=== PATIENT | female | born 2005 | race Caucasian/White ===

== ENCOUNTER 2025-07-17 15:46 | Emergency (ER) | payer BC, SELFPAY ==
[2025-07-17 15:49] VITALS: BP 131/96
--- NOTE | 2025-07-17 16:32 | ED.GENMED ---
History of Present Illness
General
Chief Complaint: Nose Bleed
Time Seen by Provider: 07/17/25 15:58
History of Present Illness
History of Present Illness:
20-year-old female presents to the emergency department for evaluation of recurrent epistaxis. Patient has had chronic intermittent epistaxis and followed up with ENT 4 days ago, had cautery performed. Had been doing well up until today. Denies
any trauma to the nose. Has been compliant with Neosporin application to the nare
Review of Systems
Review of Systems
Allergies reviewed?: Yes
All Other Systems: ROS reviewed and negative except as documented in HPI and ROS
Phy Exam
Physical Exam
Physical Exam:
GEN: Well appearing, NAD, WDWN
HEENT: Oral mucosa moist, no scleral icterus. Evidence of recent epistaxis to the superior aspect of the anterior right nare just superior to the area of cautery
Cardiac: Regular rate
Lung: No respiratory distress, no tachypnea
MSK: No gross deformity or injuries
Skin: Good color, no pallor or jaundice, no rashes
Neuro: AO x3, moves all extremities freely
Psych: Calm, cooperative
Course
Vital Signs
Initial and Last Documented VS:
Initial Vital Signs
Temp Pulse Resp BP Pulse Ox
98 F 101 20 131/96 100
07/17/25 15:49 07/17/25 15:49 07/17/25 15:49 07/17/25 15:49 07/17/25 15:49
Last Documented Vital Signs
Temp Pulse Resp BP Pulse Ox
98 F 101 20 131/96 100
07/17/25 15:49 07/17/25 15:49 07/17/25 15:49 07/17/25 15:49 07/17/25 16:35
Procedures
Nosebleed
Drug treatment: Lidocaine and Epinephrine
Treatment: Silver nitrate cautery
Post treatment bleeding: none- good control
MDM/Problems Addressed
MDM/Problems Addressed:
Nare cauterized with good results, no breakthrough bleeding noted
*Pulse Oximetry
SaO2: 100
Oxygen Mode of Delivery: Room air
Patient hypoxic: no
*Critical Care Note
Total Time (30-74mins, 75-104mins- exclusive of procedures): Not Applicable
ED Attending Note
-
Portions of this chart may have been created with voice recognition software.� Occasional wrong word or��sound alike� substitutions may have occurred due to the inherent limitations of voice recognition software.
Discharge Plan
Departure
Patient Disposition: Home (Routine Discharge)
Date of Disposition: 07/17/25
Time of Disposition: 17:06
Patient with high blood pressure during this ER visit?: No
Discharge Problem:
Epistaxis
Instructions: Nosebleeds (DC)
Prescriptions:
No Action
azithromycin [Zithromax] 100 MG/5 ML suspension for reconstitution
100 mg PO DAILY Qty: 20 0RF
Referrals:
Hattie Caballero PA-C [Family Provider, Family Practice]
Activity Restrictions/Additional Instructions:
Continue with frequent neosporin application
Interventions
Interventions:
*Risk Screen - Suicide Last Done: 07/17/25 16:00
*Neglect/Abuse Screening Last Done: 07/17/25 16:00
*ED- Fall Risk Assessment Last Done: 07/17/25 16:00
*ED COVID-19 Vaccine History Last Done: 07/17/25 16:00
*ED Influenza Vaccine History Last Done: 07/17/25 16:00
*Nursing Disposition Last Done: 07/17/25 17:14
ED-EENT Assessment Last Done: 07/17/25 16:00
Discharge Date and Time
Discharge Date/Time: 07/17/25 17:15
Print Language: MALAWIAN
== END 2025-07-17 17:15 | disposition home or self-care (01) ==
LOC: EMR 15:46
PROVIDERS: EMERGENCY PHYSICIAN Emergency Medicine; FAMILY PHYSICIAN Physician Assistant Medical
DX: R04.0 Epistaxis (principal)
CPT/HCPCS: 99282; 30901